=== PATIENT | male | born 1975 | race Two or more races ===

== ENCOUNTER 2025-01-07 10:59 | Inpatient (IN) | payer MEDICAID ==
[~2025-01-07] VITALS: Ht 180.3 cm; Wt 112.0 kg
[2025-01-07] MEDS ORDERED: ONDANSETRON HCL 4MG/2ML INJ IV STA (11:10)
[2025-01-07] MEDS ORDERED: MORPHINE SULFATE 4 MG/ML INJ (FOR IV/IM USE) IV STA (11:10)
[2025-01-07 11:55] LABS: BASOPHILS % 0.6 % (0.0-2.0); EOSINOPHILS % 0.9 % (0.0-5.0); HEMATOCRIT. 47.4 % (42.0-52.0); HEMOGLOBIN. 16.4 g/dL (14.0-18.0); LYMPHOCYTES % 21.2 % (20.0-50.0); MEAN CORPUSCULAR HGB CONC 34.6 g/dL (31.0-37.0); MEAN CORPUSCULAR VOLUME 92.3 fL (80.0-94.0); MEAN PLATELET VOLUME 8.1 fl (7.4-10.4); MONOCYTES % 8.7 % (2.0-8.0); NEUTROPHILS % 68.6 % (40.0-76.0); PLATELET 296 x1000/uL (130-400); RED BLOOD CELL COUNT 5.14 mill/uL (4.7-6.1); RED CELL DISTRIBUTION WIDTH 14.3 % (11.6-14.6); WHITE BLOOD COUNT 10.4 x1000/uL (4.5-11.0)
[2025-01-07 12:06] LABS: CARBON DIOXIDE 24 mEq/L (21-32); CHLORIDE 100 mEq/L (98-107); POTASSIUM 4.3 mEq/L (3.5-5.1); SODIUM 136 mEq/L (136-145)
[2025-01-07 12:07] LABS: CALCIUM 9.2 mg/dL (8.7-10.4)
[2025-01-07 12:11] LABS: CREATININE 1.1 mg/dL (0.6-1.3)
[2025-01-07 12:12] LABS: GLUCOSE 322 mg/dL (70-105); TROPONIN I HIGH SENSITIVITY 6 ng/L (3.0-53); UREA NITROGEN BLOOD 11 mg/dL (9-23)
[2025-01-07 12:13] LABS: ALANINE AMINOTRANSFERASE 65 IU/L (10-49); ALBUMIN 4.5 g/dL (3.2-4.8); ASPARTATE AMINOTRANSFERASE 33 IU/L (<34); PROTHROMBIN TIME 10.4 sec (9.6-11.0)
[2025-01-07 12:14] LABS: BILIRUBIN DIRECT 0.2 mg/dL (<=3.0); BILIRUBIN TOTAL 0.8 mg/dL (0.1-1.0); PROTEIN TOTAL 8.1 g/dL (6.0-8.3)
[2025-01-07] MEDS: ONDANSETRON HCL 4MG/2ML INJ IV SCH (14:53)
[2025-01-07] MEDS: SODIUM CHLORIDE 0.9% 1,000 ML IV ONE (14:53)
[2025-01-07] MEDS: MORPHINE SULFATE 4 MG/ML INJ (FOR IV/IM USE) IV SCH (14:54)
[2025-01-07] MEDS ORDERED: DEXTROSE 50% WATER 50ML SYRINGE IV PRN (15:30)
[2025-01-07] MEDS ORDERED: ACETAMINOPHEN 325MG TABLET PO PRN (15:30)
[2025-01-07] MEDS: ENOXAPARIN 40MG/0.4ML SYR SUBCUT SCH (16:31)
[2025-01-07] MEDS: BLOOD SUGAR DIAGNOSTIC STRIP TEST SCH (17:18)
[2025-01-07] MEDS: SODIUM CHLORIDE 0.9% 1,000 ML IV SCH ×2 (17:28→23:09)
[2025-01-07 17:47] VITALS: BP 150/96; PULSE 72; RESP 18; TEMP 36.5
[2025-01-07] MEDS: ONDANSETRON HCL 4MG/2ML INJ IV PRN (18:16)
[2025-01-07 20:00] VITALS: BP 151/89; PULSE 64; RESP 18; TEMP 36.7; O2SAT 97
[2025-01-07] MEDS: INSULIN LISPRO 100 UNITS/ML SUBCUT SCH (21:00)
[2025-01-07] MEDS ORDERED: NALOXONE HCL 0.4MG/ML VIAL IV PRN (22:00)
[2025-01-08] VITALS: BP 135/72; PULSE 66; RESP 18; TEMP 36.7; O2SAT 98
[2025-01-08 04:00] VITALS: BP 143/84; PULSE 62; RESP 17; TEMP 36.6; O2SAT 97
[2025-01-08 08:00] VITALS: BP 134/87; PULSE 62; RESP 17; TEMP 36.6; O2SAT 98
[2025-01-08 12:00] VITALS: BP 143/82; PULSE 61; RESP 16; TEMP 36.4; O2SAT 98
[2025-01-08 16:00] VITALS: BP 137/82; PULSE 60; RESP 17; TEMP 36.2; O2SAT 99
[2025-01-08] MEDS: HYDROCODONE/ACETAMINOPHEN 5/325MG TABLET PO PRN (17:33)
[2025-01-08 20:00] VITALS: BP 151/85; PULSE 65; RESP 20; TEMP 36.5; O2SAT 98
[2025-01-08] MEDS: ACETAMINOPHEN 325MG TABLET PO PRN (21:19)
[2025-01-09] VITALS: BP 139/79; PULSE 69; RESP 20; TEMP 36.4; O2SAT 98
[2025-01-09 08:00] VITALS: BP 155/90; PULSE 64; RESP 17; TEMP 36.7; O2SAT 98
[2025-01-09 11:47] LABS: BASOPHILS % 0.5 % (0.0-2.0); EOSINOPHILS % 2.3 % (0.0-5.0); HEMATOCRIT. 43.2 % (42.0-52.0); HEMOGLOBIN. 14.8 g/dL (14.0-18.0); LYMPHOCYTES % 29.9 % (20.0-50.0); MEAN CORPUSCULAR HEMOGLOBIN 31.7 pg (28.0-32.0); MEAN CORPUSCULAR HGB CONC 34.4 g/dL (31.0-37.0); MEAN CORPUSCULAR VOLUME 92.1 fL (80.0-94.0); MEAN PLATELET VOLUME 8.2 fl (7.4-10.4); MONOCYTES % 8.7 % (2.0-8.0); NEUTROPHILS % 58.6 % (40.0-76.0); PLATELET 264 x1000/uL (130-400); RED BLOOD CELL COUNT 4.69 mill/uL (4.7-6.1); RED CELL DISTRIBUTION WIDTH 13.9 % (11.6-14.6); WHITE BLOOD COUNT 9.5 x1000/uL (4.5-11.0)
[2025-01-09 11:53] LABS: CARBON DIOXIDE 26 mEq/L (21-32); CHLORIDE 105 mEq/L (98-107); SODIUM 137 mEq/L (136-145)
[2025-01-09 11:54] LABS: CALCIUM 8.5 mg/dL (8.7-10.4)
[2025-01-09 11:59] LABS: CREATININE 0.9 mg/dL (0.6-1.3); GLUCOSE 265 mg/dL (70-105); UREA NITROGEN BLOOD 9 mg/dL (9-23)
[2025-01-09 12:00] VITALS: BP 137/86; PULSE 66; RESP 16; TEMP 36.8; O2SAT 100
[2025-01-09] MEDS: AMLODIPINE 5MG TABLET PO SCH (12:45)
[2025-01-09 14:14] LABS: CLARITY URINE CLEAR (CLEAR); COLOR URINE YELLOW (YELLOW); GLUCOSE URINE 3+ (NEGATIVE); KETONES URINE NEGATIVE (NEGATIVE); LEUKOCYTE ESTERASE URINE NEGATIVE (NEGATIVE); NITRITE URINE NEGATIVE (NEGATIVE); OCCULT BLOOD URINE NEGATIVE (NEGATIVE); PH URINE 6.5 (4.5-8.0); PROTEIN URINE NEGATIVE (NEGATIVE); SPECIFIC GRAVITY URINE 1.018 (1.005-1.030)
[2025-01-09 14:36] LABS: *AMPHETAMINES SCREEN URINE NEGATIVE (NEGATIVE); *BARBITURATES SCREEN URINE NEGATIVE (NEGATIVE); *BENZODIAZEPINES SCREEN URINE NEGATIVE (NEGATIVE); *COCAINE SCREEN URINE NEGATIVE (NEGATIVE); CANNABINOID URINE SCREEN NEGATIVE (NEGATIVE); ECSTASY MDMA SCREEN URINE NEGATIVE (NEGATIVE); METHADONE URINE SCREEN NEGATIVE (NEGATIVE); OPIATES URINE SCREEN PRESUMPTIVE POSITIVE (NEGATIVE); PHENCYCLIDINE URINE SCREEN NEGATIVE (NEGATIVE)
[2025-01-09 14:55] LABS: SQUAMOUS EPITHELIAL CELL URINE RARE /lpf (RARE/1+)
[2025-01-09 14:57] LABS: BACTERIA URINE NONE SEEN; RBC URINE NONE SEEN /hpf (0-2); WBC URINE NONE SEEN /hpf (0-2)
[2025-01-09] MEDS ORDERED: ASPIRIN/ACETAMINOPHEN/CAFFEINE 250/250/65MG TABLET PO PRN (15:30)
[2025-01-09 16:00] VITALS: BP 134/84; PULSE 65; RESP 17; TEMP 36.8; O2SAT 99
[2025-01-09] MEDS: MECLIZINE 12.5MG TABLET PO NR (17:18)
[2025-01-09 20:00] VITALS: BP 143/86; PULSE 66; RESP 16; TEMP 37; O2SAT 99
[2025-01-10] VITALS: BP 148/89; PULSE 66; RESP 18; TEMP 37.1; O2SAT 96
[2025-01-10 04:00] VITALS: BP 154/88; PULSE 66; RESP 18; TEMP 36.5; O2SAT 99
[2025-01-10 08:00] VITALS: BP 123/69; PULSE 70; RESP 18; TEMP 36.6; O2SAT 96
[2025-01-10] MEDS: INSULIN GLARGINE 100 UNITS/ML SUBCUT SCH (10:31)
[2025-01-10 12:00] VITALS: BP 127/82; PULSE 67; RESP 18; TEMP 36.5; O2SAT 96
[2025-01-10 16:00] VITALS: BP 130/81; PULSE 68; RESP 18; TEMP 36.5; O2SAT 96
[2025-01-10] MEDS: LISINOPRIL 2.5MG TABLET PO SCH (16:56)
[2025-01-10 20:00] VITALS: BP 144/90; PULSE 72; RESP 17; TEMP 35.8; O2SAT 97
[2025-01-10] MEDS: AMLODIPINE 5MG TABLET PO SCH (20:46)
[2025-01-10] MEDS: EMPAGLIFLOZIN 25MG TABLET PO SCH (22:18)
[2025-01-10] MEDS: MECLIZINE 25MG TABLET PO SCH (22:18)
[2025-01-11] VITALS: BP 142/76; PULSE 66; RESP 18; TEMP 36.4; O2SAT 97
[2025-01-11 04:00] VITALS: BP 138/87; PULSE 76; RESP 18; TEMP 36.5; O2SAT 99
[2025-01-11 08:00] VITALS: BP 102/68; PULSE 67; RESP 20; TEMP 36.9; O2SAT 100
[2025-01-11] MEDS ORDERED: PANTOPRAZOLE SODIUM 40 MG/VIAL IV SCH (09:00)
[2025-01-11] MEDS ORDERED: PANT40TA51 MT (10:00)
[2025-01-11] MEDS ORDERED: MECL-299 PO (10:00)
[2025-01-11] MEDS ORDERED: LISI2.5T47 PO (10:00)
[2025-01-11] MEDS ORDERED: AMLO5TAB88 PO (10:00)
[2025-01-11] MEDS ORDERED: EMPA25TA PO (10:00)
[2025-01-11] MEDS ORDERED: LANTUSUD SUBCUT (10:03)
[2025-01-11] MEDS: PANTOPRAZOLE 40MG DR TABLET PO SCH (10:20)
[2025-01-11] MEDS: MAGNESIUM/ALUMINUM HYDROXIDE/SIMETHICONE 30ML UDC PO SCH (11:56)
[2025-01-11 11:58] VITALS: BP 102/68; PULSE 67; TEMP 98.1; O2SAT 100
== END 2025-01-11 12:20 | disposition home or self-care (01) | DRG 54 ==
LOC: ER 10:59 → EDBEDREQTM 13:32 → EDBEDREQSVC 13:32 → EDBEDREQ 13:32 → ENRESERV 14:48 → 7EST 16:50
PROVIDERS: ADMIT Family Medicine Adult Medicine; ATTEND Family Medicine Adult Medicine
DX: G43.909 Migraine, unspecified, not intractable, without status migrainosus (principal); E11.9 Type 2 diabetes mellitus without complications; H81.10 Benign paroxysmal vertigo, unspecified ear; L56.8 Other specified acute skin changes due to ultraviolet radiation; I10 Essential (primary) hypertension; Z86.73 Personal history of transient ischemic attack (TIA), and cerebral infarction without residual deficits; Z91.148 Patient's other noncompliance with medication regimen for other reason
CPT/HCPCS: 36415; 70551; 74176; 80048; 80076; 80305; 81003; 82962; 83036; 84484; 85025; 93970; 97162; 97535; 99285; J1650; J1815; J2270; J2405; J7030; J8597